=== PATIENT | female | born 1950 | race Caucasian/White ===

== ENCOUNTER 2018-11-26 21:19 | Emergency (ER) | payer OTHER ==
[~2018-11-26] VITALS: Ht 165.1 cm; Wt 62.6 kg
--- NOTE | 2018-11-26 21:35 | NUR ---
PT ANDREA FROM [facility] C/C R SHOULDER PAIN S/P TRIP AND FALL OVER CORDS & LANDING ONTO KNEES AND R SHOULDER. -NECK OR HEAD TRAUMA. C/O BILAT KNEE PAIN. PT AOX4. NAD NOTED. RESP EVEN AND UNLABORED. PT ON MONITOR IN BED 9. WILL CONTINUE TO MONITOR.
--- NOTE | 2018-11-26 21:46 | NUR ---
RADIOLOGY AT BEDSIDE FOR XRAY
[2018-11-26] MEDS ORDERED: IBUPROFEN 600 MG TABLET PO ONE ×2 (22:21→22:30)
[2018-11-26 23:01] VITALS: BP 122/73
--- NOTE | 2018-11-26 23:05 | NUR ---
FRIEND AT BEDSIDE
--- NOTE | 2018-11-26 23:53 | NUR ---
Patient discharged to home in stable condition. Written and verbal after care instructions given. Patient verbalizes understanding of instruction. PT AMBULATORY WITH STEADY GAIT ACCOMPANIED BY FRIEND.
== END 2018-11-26 23:59 | disposition home or self-care (01) ==
LOC: ER 21:21
DX: S42.391A Other fracture of shaft of right humerus, initial encounter for closed fracture (principal); S80.02XA Contusion of left knee, initial encounter; S80.01XA Contusion of right knee, initial encounter; S63.591A Other specified sprain of right wrist, initial encounter; W18.09XA Striking against other object with subsequent fall, initial encounter; Y93.89 Activity, other specified; Y92.89 Other specified places as the place of occurrence of the external cause; Y99.8 Other external cause status
CPT/HCPCS: 73030; 73060; 73090; 73110; 73564 ×2; 99283; A4606